=== PATIENT | male | born 1965 | race Caucasian/White ===

== ENCOUNTER 2017-10-23 02:01 | Emergency (ER) | payer SELFPAY ==
[~2017-10-23] VITALS: Ht 177.8 cm; Wt 90.7 kg
[2017-10-23 02:02] VITALS: BP 126/88
[2017-10-23 03:11] LABS: Basophils # (auto) 0.1 uL; Basophils % (auto) 0.6 % (0.0-2.0); Eosinophils # (auto) 0.1 uL; Eosinophils % (auto) 0.6 % (0.0-7.0); Hematocrit 42.6 % (41.0-53.0); Hemoglobin 14.8 g/dL (13.5-17.5); Lymphocytes # (auto) 1.4 uL; Lymphocytes % (auto) 14.1 % (10.0-50.0); Mean Corpuscular Hemoglobin 33.2 pg (28.0-32.0); Mean Corpuscular Hgb Conc. 34.7 g/dL (32.0-36.0); Mean Corpuscular Volume 95.6 fL (80.0-100.0); Monocytes # (auto) 0.5 uL; Monocytes % (auto) 4.5 % (0.0-12.0); Neutrophils # (auto) 8.2 uL; Neutrophils % (auto) 80.2 % (37.0-80.0); Platelet Count (auto) 171 10^3/uL (140-450); Red Blood Cells 4.45 10^6/uL (4.5-5.90); Red Cell Distribution Width 13.1 % (11.8-14.3); White Blood Cell 10.2 10^3/uL (4.4-10.8)
[2017-10-23 03:32] LABS: Albumin 3.8 g/dL (3.4-5.0); Calcium 7.9 mg/dL (8.5-10.1); Potassium 3.8 mmol/L (3.5-5.1)
[2017-10-23 03:34] LABS: Salicylate 2.1 mg/dL (2.8-20.0)
[2017-10-23 03:35] LABS: Acetaminophen < 2.0 ug/mL (10-30); Bilirubin, Total 0.4 mg/dL (0.2-1.0); Total Protein 7.7 g/dL (6.4-8.2)
== END 2017-10-23 06:46 | disposition left against medical advice (07) ==
LOC: EDBD 02:01 → ER 02:09
DX: F10.10 Alcohol abuse, uncomplicated (principal); Z53.21 Procedure and treatment not carried out due to patient leaving prior to being seen by health care provider
CPT/HCPCS: 36415; 80053; 80320; 80329; 85025

== ENCOUNTER 2020-05-25 07:57 | Emergency (ER) | payer BC, OTHER ==
[~2020-05-25] VITALS: Ht 177.8 cm; Wt 90.7 kg
[2020-05-25 08:00] VITALS: BP 146/104
[2020-05-25] MEDS ORDERED: KETOROLAC TROMETH 30 MG/ML 1ML VIAL IV ONE (08:45)
[2020-05-25] MEDS ORDERED: cefTRIAXone 1GM/50ML D5W 50 ML IV ONE (08:45)
[2020-05-25 09:03] LABS: Basophils # (auto) 0.1 10 ^3/uL (0-0.2); Basophils % (auto) 0.6 % (0.0-2.0); Eosinophils # (auto) 0.3 10 ^3/uL (0-0.8); Eosinophils % (auto) 2.3 % (0.0-7.0); Hematocrit 41.5 % (41.0-53.0); Hemoglobin 14.6 g/dL (13.5-17.5); Lymphocytes # (auto) 1.7 10 ^3/uL (0.4-5.4); Lymphocytes % (auto) 15.4 % (10.0-50.0); Mean Corpuscular Hemoglobin 33.7 pg (28.0-32.0); Mean Corpuscular Hgb Conc. 35.3 g/dL (32.0-36.0); Mean Corpuscular Volume 95.5 fL (80.0-100.0); Monocytes % (auto) 8.6 % (0.0-12.0); Neutrophils # (auto) 8.2 10 ^3/uL (1.6-8.6); Neutrophils % (auto) 73.1 % (37.0-80.0); Platelet Count (auto) 161 10^3/uL (140-450); Red Blood Cells 4.35 10^6/uL (4.5-5.90); White Blood Cell 11.2 10^3/uL (4.4-10.8)
[2020-05-25 09:25] LABS: BUN/Creatinine Ratio 16.7; Calcium 8.8 mg/dL (8.5-10.1); Potassium 4.1 mmol/L (3.5-5.1)
[2020-05-25] MEDS ORDERED: methylPREDNISolone SOD SUCC 125 MG/2 ML VL IV ONE (09:45)
== END 2020-05-25 10:04 | disposition home or self-care (01) ==
LOC: ER 07:57
DX: M10.9 Gout, unspecified (principal); M19.071 Primary osteoarthritis, right ankle and foot; I10 Essential (primary) hypertension
CPT/HCPCS: 36415; 73610; 80048; 84550; 85025; 93971; 96365; 96375; 99285; J0696; J1885; J2930

== ENCOUNTER 2020-09-04 19:43 | Emergency (ER) | payer BC ==
[~2020-09-04] VITALS: Ht 177.8 cm; Wt 99.8 kg
[2020-09-04 19:45] VITALS: BP 137/89
[2020-09-04] MEDS ORDERED: KETOROLAC TROMETH 60MG/2ML VIAL IM ONE (20:30)
[2020-09-04] MEDS ORDERED: methylPREDNISolone SOD SUCC 125 MG/2 ML VL IM ONE (20:30)
[2020-09-04 20:34] LABS: Basophils # (auto) 0.1 10 ^3/uL (0-0.2); Basophils % (auto) 0.5 % (0.0-2.0); Eosinophils # (auto) 0.3 10 ^3/uL (0-0.8); Eosinophils % (auto) 2.3 % (0.0-7.0); Hematocrit 44.7 % (41.0-53.0); Hemoglobin 15.8 g/dL (13.5-17.5); Lymphocytes # (auto) 1.6 10 ^3/uL (0.4-5.4); Lymphocytes % (auto) 13.1 % (10.0-50.0); Mean Corpuscular Hgb Conc. 35.4 g/dL (32.0-36.0); Mean Corpuscular Volume 93.3 fL (80.0-100.0); Monocytes # (auto) 1.1 10 ^3/uL (0-1.3); Monocytes % (auto) 8.6 % (0.0-12.0); Neutrophils # (auto) 9.2 10 ^3/uL (1.6-8.6); Neutrophils % (auto) 75.5 % (37.0-80.0); Platelet Count (auto) 184 10^3/uL (140-450); Red Blood Cells 4.79 10^6/uL (4.5-5.90); Red Cell Distribution Width 13.2 % (11.8-14.3); White Blood Cell 12.2 10^3/uL (4.4-10.8)
== END 2020-09-04 21:19 | disposition home or self-care (01) ==
LOC: ER 19:44
DX: M10.9 Gout, unspecified (principal); F10.10 Alcohol abuse, uncomplicated; Y90.9 Presence of alcohol in blood, level not specified
CPT/HCPCS: 36415; 84550; 85025; 96372; 99284; J1885; J2930

== ENCOUNTER 2021-06-28 22:33 | Emergency (ER) | payer BC ==
[~2021-06-28] VITALS: Ht 177.8 cm; Wt 107.5 kg
[2021-06-28 22:37] VITALS: BP 149/90
[2021-06-28] MEDS ORDERED: INDOMETHACIN 25 MG CAP PO ONE (23:15)
[2021-06-28] MEDS ORDERED: INDO50CA82 PO (23:23)
[2021-06-28] MEDS ORDERED: HYDROcodone-ACET 10/325MG TAB PO ONE (23:30)
[2021-06-28] MEDS ORDERED: ONDANSETRON ODT 4 MG TAB PO ONE (23:30)
[2021-06-29] MEDS ORDERED: methylPREDNISolone SOD SUCC 125 MG/2 ML VL IM ONE (00:15)
[2021-06-29] MEDS ORDERED: PRED20TA2 PO (01:20)
== END 2021-06-29 01:53 | disposition home or self-care (01) ==
LOC: ER 22:33
DX: M10.9 Gout, unspecified (principal); I10 Essential (primary) hypertension
CPT/HCPCS: 36415; 84550; 96372; 99284; J2930; Q0162